=== PATIENT | female | born 1975 | race African-American/Black ===

== ENCOUNTER → 2017-06-22 | Outpatient (CLI) | payer BC ==
--- NOTE | 2017-06-22 13:33 | RAD ---
DATE: 06/22/2017 EXAM: DIGITAL SCREEN BILAT W/CAD HISTORY: Routine screening. COMPARISON: None This study was interpreted with the benefit of Computerized Aided Detection (CAD). FINDINGS: Parenchymal heterogeneity is noted. No discrete mass or malignant appearing microcalcifications are seen. The axillae are unremarkable. Breast Density: HETERO The breast parenchyma is heterogeneously dense, which could reduce sensitivity of mammography. Breast parenchyma level C. IMPRESSION: No mammographic features suspicious for malignancy are identified. BI-RADS CATEGORY: 1 NEGATIVE RECOMMENDED FOLLOW-UP: 12M 12 MONTH FOLLOW-UP PQRS compliance statement: Patient information was entered into a reminder system with a target due date 06/22/2018 for the next mammogram. Mammography is a sensitive method for finding small breast cancers, but it does not detect them all and is not a substitute for careful clinical examination. A negative mammogram does not negate a clinically suspicious finding and should not result in delay in biopsying a clinically suspicious abnormality. "Our facility is accredited by the [employer] Mammography Program."
== END | disposition home or self-care (01) ==
LOC: MAMMO 12:25
PROVIDERS: ATTEND Internal Medicine
DX: Z12.31 Encounter for screening mammogram for malignant neoplasm of breast (principal)
CPT/HCPCS: G0202; 77067